=== PATIENT | female | born 1990 | race Caucasian/White ===

== ENCOUNTER 2020-06-19 21:48 | Emergency (ER) | payer MEDICAID ==
[~2020-06-19] VITALS: Ht 154.9 cm; Wt 86.2 kg
[2020-06-19 21:52] VITALS: BP 121/79
[2020-06-19] MEDS ORDERED: LIDOCAINE VISCOUS 2% 20 ML UDC PO ONE (22:05)
[2020-06-19] MEDS ORDERED: ALUMINUM HYD/MAG/SIMETHICONE 30 ML UDC PO ONE (22:05)
[2020-06-19] MEDS ORDERED: FAMO-90 PO (22:56)
[2020-06-19 23:10] VITALS: BP 121/79
== END 2020-06-19 23:10 | disposition home or self-care (01) ==
LOC: MED 21:48
DX: R13.10 Dysphagia, unspecified (principal); Z79.899 Other long term (current) drug therapy; Z88.1 Allergy status to other antibiotic agents
CPT/HCPCS: 99283

== ENCOUNTER 2021-07-04 13:14 | Emergency (ER) | payer MEDICAID, OTHER ==
[~2021-07-04] VITALS: Ht 154.9 cm; Wt 81.6 kg
[~2021-07-04 13:14] MED LIST: FAMO-90 PO
[2021-07-04 13:21] VITALS: BP 141/94
--- NOTE | 2021-07-04 13:37 | NUR ---
EKG AT BEDSIDE.
--- NOTE | 2021-07-04 13:37 | NUR ---
PT AMB TO BED 11.
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
--- NOTE | 2021-07-04 16:01 | NUR ---
Patient appears to be resting comfortably in bed. Vital Signs within normal limits. Respirations even and unlabored.
[2021-07-04 16:13] LABS: BASOPHILS # (AUTO) 0.1 K/uL (0.00-0.22); BASOPHILS % (AUTO) 0.8 % (0.0-2.0); EOSINOPHILS # (AUTO) 0.1 K/uL (0-0.4); EOSINOPHILS % (AUTO) 0.8 % (0.0-4.0); HEMOGLOBIN 11.7 g/dL (12.0-16.0); LYMPHOCYTES # (AUTO) 2.4 K/uL (2.5-16.5); LYMPHOCYTES % (AUTO) 24.7 % (20.5-51.1); MEAN CORPUSCULAR HEMOGLOBIN 29 pg (27-31); MEAN CORPUSCULAR HGB CONC 33 g/dL (33-37); MEAN CORPUSCULAR VOLUME 85.6 fL (80-94); MONOCYTES # (AUTO) 0.6 K/uL (0.8-1.0); MONOCYTES % (AUTO) 6.2 % (1.7-9.3); NEUTROPHILS # (AUTO) 6.6 K/uL (1.8-7.7); NEUTROPHILS % (AUTO) 67.5 % (42.2-75.2); PLATELET COUNT (AUTO) 382 K/uL (140-450); RED BLOOD CELL COUNT(AUTO) 4.09 MIL/uL (4.20-5.40); RED CELL DISTRIBUTION WIDTH 14.3 % (11.6-13.7); WHITE BLOOD COUNT (AUTO) 9.7 K/uL (4.8-10.8)
[2021-07-04] MEDS ORDERED: NACL 0.9% 1,000 ML IV ONE (16:35)
[2021-07-04 16:47] LABS: ALBUMIN 3.8 g/dL (3.4-5.0); ANION GAP 11.4 (8-16); ASPARTATE AMINOTRANSFERASE 14 U/L (15-37); CARBON DIOXIDE 27.3 mmol/L (21-32); CHLORIDE 104 mmol/L (98-107); FREE T4 (FREE THYROXINE) 0.89 ng/dL (0.76-1.46); GFR ARICAN-AMERICAN 83 mL/min (>90); GLUCOSE 99 mg/dL (74-106); POTASSIUM 3.7 mmol/L (3.5-5.1); SODIUM SERUM 139 mmol/L (136-145); THYROID STIMULATING HORMONE 2.64 uIU/mL (0.34-3.74); TOTAL BILIRUBIN 0.2 mg/dL (0.0-1.0); UREA NITROGEN, BLOOD 14 mg/dL (7-18)
[2021-07-04 17:34] VITALS: BP 132/79
--- NOTE | 2021-07-04 17:34 | NUR ---
Patient discharged with v/s stable. Written and verbal after care instructions given and explained. Patient alert, oriented and verbalized understanding of instructions. Ambulatory with steady gait. All questions addressed prior to discharge. ID band removed. Patient advised to follow up with PMD. Opportunity to ask questions provided and answered.
== END 2021-07-04 17:34 | disposition home or self-care (01) ==
LOC: MED 13:14
DX: E86.0 Dehydration (principal); R06.02 Shortness of breath; R00.0 Tachycardia, unspecified; R00.2 Palpitations; Z79.899 Other long term (current) drug therapy; Z88.0 Allergy status to penicillin
CPT/HCPCS: 36415; 71045; 80053; 84439; 84443; 84484; 85025; 93005; 96360; 99285; J7030; Q0092

== ENCOUNTER 2021-08-12 15:34 | Emergency (ER) | payer OTHER ==
[~2021-08-12] VITALS: Ht 154.9 cm; Wt 86.2 kg
[2021-08-12 16:15] VITALS: BP 128/87
[2021-08-12] MEDS ORDERED: ONDANSETRON 4 MG/2 ML VIAL IVP ONE (16:25)
[2021-08-12] MEDS ORDERED: KETOROLAC 30 MG/ML VIAL IVP ONE (16:25)
[2021-08-12 17:23] LABS: BASOPHILS # (AUTO) 0.1 K/uL (0.00-0.22); BASOPHILS % (AUTO) 0.9 % (0.0-2.0); EOSINOPHILS # (AUTO) 0.3 K/uL (0-0.4); EOSINOPHILS % (AUTO) 2.6 % (0.0-4.0); HEMATOCRIT 36.7 % (36-48); LYMPHOCYTES # (AUTO) 2.4 K/uL (2.5-16.5); LYMPHOCYTES % (AUTO) 22.9 % (20.5-51.1); MEAN CORPUSCULAR HEMOGLOBIN 28 pg (27-31); MEAN CORPUSCULAR HGB CONC 33 g/dL (33-37); MEAN CORPUSCULAR VOLUME 86.1 fL (80-94); MONOCYTES # (AUTO) 0.4 K/uL (0.8-1.0); NEUTROPHILS # (AUTO) 7.2 K/uL (1.8-7.7); NEUTROPHILS % (AUTO) 69.6 % (42.2-75.2); PLATELET COUNT (AUTO) 402 K/uL (140-450); RED BLOOD CELL COUNT(AUTO) 4.27 MIL/uL (4.20-5.40); RED CELL DISTRIBUTION WIDTH 14.7 % (11.6-13.7); WHITE BLOOD COUNT (AUTO) 10.3 K/uL (4.8-10.8)
[2021-08-12 17:36] LABS: ALBUMIN 4.1 g/dL (3.4-5.0); CARBON DIOXIDE 28.1 mmol/L (21-32); CREATININE 0.7 mg/dL (0.6-1.3); POTASSIUM 4.1 mmol/L (3.5-5.1); TOTAL BILIRUBIN 0.2 mg/dL (0.0-1.0)
[2021-08-12] MEDS ORDERED: BEN10 PO ×2 (19:35→21:25)
[2021-08-12 19:47] VITALS: BP 128/87
== END 2021-08-12 19:47 | disposition home or self-care (01) ==
LOC: MED 15:34
DX: R10.84 Generalized abdominal pain (principal); R11.2 Nausea with vomiting, unspecified; Z86.79 Personal history of other diseases of the circulatory system; Z79.899 Other long term (current) drug therapy; Z88.0 Allergy status to penicillin
CPT/HCPCS: 36415; 74176; 80053; 81002; 81025; 83690; 85025; 96374; 96375; 99284; J1885; J2405

== ENCOUNTER 2021-09-13 08:19 | Emergency (ER) | payer OTHER ==
[~2021-09-13] VITALS: Ht 154.9 cm; Wt 85.7 kg
[~2021-09-13 08:19] MED LIST changes: +BEN10 PO
[2021-09-13 08:33] VITALS: BP 125/75
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
--- NOTE | 2021-09-13 09:06 | NUR ---
DR MORALES AT PT SIDE FOR FURTHER EVAL
[2021-09-13] MEDS ORDERED: NAPR-1704 PO (09:08)
[2021-09-13] MEDS ORDERED: TRAM50TA1 PO (09:08)
[2021-09-13] MEDS ORDERED: CARI350T PO (09:08)
[2021-09-13 09:10] VITALS: BP 125/75
--- NOTE | 2021-09-13 09:10 | NUR ---
Patient discharged with v/s stable. Written and verbal after care instructions given and explained. Patient alert, oriented and verbalized understanding of instructions. Ambulatory with steady gait. All questions addressed prior to discharge. ID band removed. Patient advised to follow up with PMD. Rx of SOMA, NAPROXEN, ULTRAM given. Patient educated on indication of medication including possible reaction and side effects. Opportunity to ask questions provided and answered.
== END 2021-09-13 09:10 | disposition home or self-care (01) ==
LOC: MED 08:19
DX: M54.50 Low back pain, unspecified (principal); I25.10 Atherosclerotic heart disease of native coronary artery without angina pectoris; Z88.1 Allergy status to other antibiotic agents
CPT/HCPCS: 99283

== ENCOUNTER 2022-03-11 12:10 | Emergency (ER) | payer OTHER ==
[~2022-03-11] VITALS: Ht 162.6 cm; Wt 88.0 kg
[~2022-03-11 12:10] MED LIST changes: +CARI350T PO; +NAPR-1704 PO; +TRAM-748 PO
[2022-03-11 12:48] VITALS: BP 121/78
[2022-03-11 14:08] LABS: APPEARANCE,URINE CLEAR (CLEAR); BILIRUBIN,URINE NEGATIVE (NEGATIVE); BLOOD, URINE NEGATIVE (NEGATIVE); COLOR,URINE YELLOW (YELLOW); LEUKOCYTE ESTERASE ,URINE TRACE (NEGATIVE); NITRITE, URINE NEGATIVE (NEGATIVE); PH,URINE 7.5 (5.0-9.0); UGLUCOSE NEGATIVE (NEGATIVE)
[2022-03-11] MEDS ORDERED: CETI10SG1 PO (14:25)
[2022-03-11 14:37] VITALS: BP 129/82
[2022-03-11 15:41] LABS: RBC,URINE NONE SEEN /HPF (0-5); WBC,URINE 0-5 /HPF (0-5)
[2022-03-12] MEDS ORDERED: DOPPLER MC ONE (23:41)
== END 2022-03-11 14:37 | disposition home or self-care (01) ==
LOC: MED 12:10
DX: J30.9 Allergic rhinitis, unspecified (principal); Z20.822 Contact with and (suspected) exposure to COVID-19; Z79.899 Other long term (current) drug therapy; Z79.891 Long term (current) use of opiate analgesic; Z79.1 Long term (current) use of non-steroidal anti-inflammatories (NSAID); Z88.0 Allergy status to penicillin
CPT/HCPCS: 81001; 81025; 99283